=== PATIENT | male | born 1985 | race Caucasian/White ===

== ENCOUNTER 2020-02-20 16:37 | Emergency (ER) | payer SELFPAY ==
[2020-02-20 16:38] VITALS: BP 146/98; PULSE 78; RESP 16; TEMP 37.3; O2SAT 98; BMI 26.5
--- NOTE | 2020-02-20 17:43 | XR_ITS ---
PROCEDURE: XR ELBOW LT MIN 3V CLINICAL INDICATION: PAIN COMPARISON: No exams were available for comparison FINDINGS: No fracture or dislocation. No lytic or blastic change. There is normal mineralization. The joint spaces are well-preserved. No significant degenerative/arthritic changes. No erosive changes evident. Other findings:None. IMPRESSION: No acute findings. Dictated by: Jaiden Jesus MD 02/20/2020 22:21 Electronically signed by Jaiden Jesus MD in [facility] 02/20/2020 22:21
--- NOTE | 2020-02-20 17:43 | XR_ITS ---
PROCEDURE: XR FOREARM LT 2V CLINICAL INDICATION: PAIN COMPARISON: No exams were available for comparison FINDINGS: No fracture or dislocation. No lytic or blastic change. There is normal mineralization. The joint spaces are well-preserved. No significant degenerative/arthritic changes. No erosive changes evident. Other findings:None. IMPRESSION: No acute findings. Dictated by: Jaiden Jesus MD 02/20/2020 22:21 Electronically signed by Jaiden Jesus MD in [facility] 02/20/2020 22:21
--- NOTE | 2020-02-20 18:06 | PC.NURSE ---
per rad staff pt refused his ankle xray, will notify [facility]
--- NOTE | 2020-02-20 18:24 | PC.NURSE ---
pt refusing covid test, will notify [facility]
--- NOTE | 2020-02-20 18:28 | PC.NURSE ---
PT WANTED TO SIGN OUT AMA
--- NOTE | 2020-02-20 18:31 | PC.NURSE ---
INFORMED PT OF POSSIBLE RISKS OF SIGNING OUT AMA INCLUDING POSS OF
[2020-02-20 18:32] VITALS: BP 132/78; PULSE 78; RESP 16; TEMP 36.6; O2SAT 98
== END 2020-02-20 18:40 | disposition home or self-care (01) ==
PROVIDERS: Emergency Provider Family Medicine
DX: S50.12XA Contusion of left forearm, initial encounter (principal); S00.83XA Contusion of other part of head, initial encounter; V89.2XXA Person injured in unspecified motor-vehicle accident, traffic, initial encounter
CPT/HCPCS: 73080; 73090; 99282

== ENCOUNTER 2021-04-24 20:13 | Emergency (ER) | payer OTHER, SELFPAY ==
[2021-04-24 20:12] VITALS: BP 116/72; PULSE 120; RESP 18; TEMP 36.8; O2SAT 99; BMI 26.5
--- NOTE | 2021-04-24 20:38 | [facility]H.EDOD ---
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, PCP (phencyclidine) abuse Ototoxicity Qualifiers: Laterality: bilateral Qualified Code(s): H93.8X3 - Other specified disorders of ear, bilateral Disposition: Home, Self-Care Condition on Discharge: Good Instructions: DI for Drug Overdose in Adults Additional Instructions: see pcp for follow up Referrals: Provider,Referral, [Primary Care Provider] - - Critical Care Critical Care Time: No Attestation: On 04/24/21, the high probability of a clinically significant, sudden or life threatening deterioration of the following system(s) required my full and direct attention, intervention and personal management. The time I documented below is in addition to time spent performing reported procedures but includes the following listed in this critical care notation. Medical Decision Making - Medical Records Medical records reviewed: Yes: I reviewed the patient's medical records. - Ruben Inquiry Pt receiving controlled substance: No Vital Signs: 04/24/21 20:12 Temperature 98.3 F Temperature Source Oral Pulse Rate [Right] 120 H Respiratory Rate 18 Blood Pressure [Right Arm] 116/72 Blood Pressure Mean [Right Arm] 86 Blood Pressure Source [Right Arm] Automatic Cuff Blood Pressure Position [Right Arm] Sitting 02 Sat by Pulse Oximetry 99 Oxygen Delivery Method Room Air - Lab Data Lab results reviewed: Yes: I reviewed the patient's lab results. Lab Results 04/24/21 20:15: WBC 15.8 H, RBC 4.54 L, Hgb 13.9 L, Hct 44.3, MCV 97.5 H, MCH 30.7, MCHC 31.5 L, RDW 14.7, Plt Count 314, MPV 8.9, Neut % (Auto) 88.6 H, Lymph % (Auto) 5.8 L, [place] % (Auto) 4.9, Eos % (Auto) 0.3, Baso % (Auto) 0.5, Neut # (Auto) 14.0 H, Lymph # (Auto) 0.9, [place] # (Auto) 0.8, Eos # (Auto) 0.0, Baso # (Auto) 0.1 04/24/21 20:15: C-Reactive Protein 17.4 H, Salicylates < 1.0 L, Acetaminophen < 10 L 04/24/21 20:15: Urine Color Yellow, Urine Appearance Clear, Urine pH 5.5, Ur Specific [place] >= 1.030, Urine Protein 1+, Urine Glucose (UA) Negative, Urine Ketones Negative, Urine Blood Negative, Urine Nitrate Negative, Urine Bilirubin Negative, Urine Urobilinogen 0.2, Ur Leukocyte Esterase Negative, Urine RBC None, Urine WBC 5-10, Ur Squamous Epith Cells Occasional, Urine Bacteria None, Urine Yeast 1+, Urine Sperm 1+ 04/24/21 20:15: Urine Opiates Screen Negative, Urine Methadone Screen Negative, Ur Barbituates Screen Negative, Ur Phencyclidine Scrn Positive H, Ur Amphetamines Screen Negative, U Benzodiazepines Scrn Negative, Urine Cocaine Screen Negative, U Marijuana (THC) Screen Negative 04/24/21 20:15: Plasma/Serum Alcohol < 10 04/24/21 20:15: ESR 17 H 04/24/21 20:15: Sodium 143, Potassium 4.5, Chloride 103, Carbon Dioxide 25, Anion Gap 19.5 H, BUN 11, Creatinine 1.30 H, Estimated Creat Clear 93, Estimated GFR 62, Est GFR ( Amer) 76, Glucose 108 H, Calcium 8.6, Total Bilirubin 0.4, AST 134 H, ALT 73, Alkaline Phosphatase 115, Total Protein 7.9, Albumin 4.6, Globulin 3.3 H, Albumin/Globulin Ratio 1.4, Procalcitonin 0.965 Result diagrams: 04/24/21 20:15 04/24/21 20:15 Orders (Tests/Meds): ED MEDICATIONS Generic Name Dose Route Start Last Admin Trade Name Freq PRN Reason Stop Dose Admin Sodium Chloride 1,000 mls @ 999 mls/hr 04/24/21 20:45 04/24/21 20:37 Sod Chlor 0.9% 1000ml Bag IV 04/24/21 21:45 999 mls/hr .[id number] KRISTI Administration ORDERS Category Date Time Status CBC [Complete Blood Count Auto Diff] Stat Lab 04/24/21 20:15 Results EKG Request [ECG Request by /[facility]] Stat Y 04/24/21 20:46 Ordered - Radiology Data #1 Image(s): Chest Image Reviewed: Yes I have reviewed radiologist's interpretation Preliminary Findings: Normal/NAD - ECG Data Tracing #1 Arrhythmias present: sinus tach Ischemic changes: non-specific ST-T wave changes Medical Decision Narrative: stable exam and labs will ask pt to see pcp for follow up and hopef
[2021-04-24 20:44] LABS: Microscopic, Urine URINE MICROSCOPIC (MICROSCOPIC)
--- NOTE | 2021-04-24 20:45 | XR_ITS ---
PROCEDURE INFORMATION: Exam: XR Chest Exam date and time: 04/24/2021 8:45 PM Age: 36 years old Clinical indication: Other: Overdose; Additional info: Od TECHNIQUE: Imaging protocol: XR of the chest. Views: 1 view. COMPARISON: No relevant prior studies available. FINDINGS: Limited inspiration and under penetration of the chest. Lungs: There are atelectatic changes identified within the perihilar regions. No evidence of alveolar consolidation. There is no evidence of pulmonary vascular congestion. Pleural spaces: Unremarkable. No pleural effusion. No pneumothorax. Heart/Mediastinum: Unremarkable. No cardiomegaly. Bones/joints: Unremarkable. IMPRESSION: Limited inspiration and under penetration of the chest. There are bilateral perihilar atelectatic changes. No evidence of consolidation or congestive failure.
[2021-04-24 20:53] LABS: Appearance,Urine CLEAR (Clear); Bilirubin,Urine Negative (Negative); Blood, Urine Negative (Negative); Color,Urine YELLOW (Yellow); Glucose,Urine (UA) Negative (Negative); Ketones,Urine Negative (Negative); Leukocyte Esterase,Urine Negative (Negative); Nitrate,Urine Negative (Negative); PH,Urine 5.5 (5.0-8.5); Protein,Urine 1+ (Negative); Specific Gravity, Urine >= 1.030 (1.005-1.030); Urobilinogen,Urine 0.2 EU/dl (0.2)
[2021-04-24 20:55] LABS: Alanine Aminotransferase 73 U/L (12-78); Albumin Level 4.6 g/dl (3.5-5.0); Albumin/Globulin Ratio 1.4 (1.1-1.8); Alkaline Phosphatase 115 U/L (38-126); Anion Gap 19.5 mEq/L (5-15); Aspartate Amino Transferase 134 U/L (17-59); Bilirubin,Total 0.4 mg/dl (0.2-1.3); Blood Urea Nitrogen 11 mg/dl (9-20); Calcium 8.6 mg/dl (8.4-10.2); Carbon Dioxide 25 mmol/L (22.0-30.0); Chloride 103 mmol/L (98-107); Creatinine Clearance Estimated 93 mL/min (50-200); Estimated Glomerular Filt Rate 62 ml/min (>60); GFR (African American) 76 ML/MIN (>60); Globulin 3.3 g/dL (1.3-3.2); Glucose 108 mg/dl (74-100); Potassium 4.5 mmoL/L (3.5-5.1); Sodium 143 mmol/L (136-145); Total Protein,Serum 7.9 g/dl (6.3-8.2)
--- NOTE | 2021-04-24 20:55 | ECG_ITS ---
APPROVED REPORT Exam: Resting ECG HR:105 bpm ECG Measurements Heart Rate 105 AXES [place] 142 P QRSd 96 QRS -18 QT 342 T 44 QTc 452 Conclusion Sinus tachycardia Otherwise normal ECG Electronically signed by : Migue Cheng MD 04/25/2021 17:28:08
[2021-04-24 20:58] LABS: Acetaminophen < 10 ug/ml (10-30); Ethyl Alcohol < 10 mg/dl (0-10); Salicylate < 1.0 mg/dL (2.0-20.0)
[2021-04-24 21:00] LABS: C-Reactive Protein 17.4 mg/L (0-4)
[2021-04-24 21:04] LABS: Amphetamine/Metha Screen,Urine Negative ng/ml (<1000); Benzodiazepines Screen,Urine Negative ng/ml (<200)
[2021-04-24 21:05] LABS: Barbiturates Screen,Urine Negative ng/ml (<200)
[2021-04-24 21:06] LABS: Cannabinoid Screen,Urine Negative ng/ml (<50)
[2021-04-24 21:07] LABS: Cocaine Screen,Urine Negative ng/ml (<300); Methadone Screen,Urine Negative ng/ml (<300)
[2021-04-24 21:08] LABS: Opiate Screen,Urine Negative ng/ml (<300); Phencyclidine Screen,Urine Positive ng/ml (<25)
[2021-04-24 21:10] LABS: Erythrocyte Sedimentation Rate 17 mm/hr (0-15)
[2021-04-24 21:13] LABS: Procalcitonin 0.965 ng/mL (0.0-2.0); Squamous Epithelial Cell,Urine Occasional #/hpf (0-5)
[2021-04-24 21:14] LABS: Sperm,Urine 1+ /lpf; Yeast,Urine 1+ /lpf
[2021-04-24 21:25] LABS: Basophils # 0.1 K/mm3 (0-0.2); Basophils % 0.5 % (0.1-2.0); Eosinophils % 0.3 % (0.1-12.0); Hematocrit 44.3 % (42.0-52.0); Hemoglobin 13.9 g/dL (14.1-18.0); Lymphocytes # 0.9 K/mm3 (0.7-4.5); Lymphocytes % 5.8 % (10-50); Mean Corpuscular HGB Conc 31.5 g/dL (31.8-35.4); Mean Corpuscular Hemoglobin 30.7 pg (27.0-31.2); Mean Corpuscular Volume 97.5 fl (80-94); Mean Platelet Volume 8.9 fl (7.4-10.4); Monocytes # 0.8 K/mm3 (0.1-1.0); Monocytes % 4.9 % (1.7-9.3); Neutrophils % 88.6 % (37.0-80.0); Platelet Count 314 K/mm3 (142-424); Red Blood Count 4.54 M/mm3 (4.60-6.20); Red Cell Distribution Width 14.7 % (11.5-17.5); White Blood Count 15.8 K/mm3 (4.8-10.8)
[2021-04-24 21:27] LABS: MANUAL DIFFERENTIAL MANUAL DIFFERENTIAL (MANUAL DIFF)
[2021-04-24 21:38] VITALS: BP 90/66; PULSE 108; RESP 16; TEMP 36.7; O2SAT 99
[2021-04-24 21:38] LABS: Lymphocytes % 9 % (10-50); Monocytes % 3 % (2-9); Neutrophils % 88 % (42-76); Platelet Estimate Normal; RBC Morphology Normal; Total Cells Counted 100
== END 2021-04-24 21:47 | disposition home or self-care (01) ==
PROVIDERS: Emergency Provider Emergency Medicine
DX: T40.601A Poisoning by unspecified narcotics, accidental (unintentional), initial encounter (principal); H91.93 Unspecified hearing loss, bilateral; F17.210 Nicotine dependence, cigarettes, uncomplicated; Z88.0 Allergy status to penicillin
CPT/HCPCS: 71045; 80053; 80305; 80329; 81001; 84145; 85007; 85025; 85651; 86140; 93005; 96365; 99282

== ENCOUNTER 2025-05-28 18:58 | Emergency (ER) | payer SELFPAY ==
[2025-05-28 19:48] VITALS: BP 153/87; PULSE 80; RESP 18; TEMP 36.8; O2SAT 99; BMI 26.5
--- NOTE | 2025-05-28 21:04 | [facility].EDGENADL ---
Discharge Plan Disposition Patient Disposition: Home, Self-Care Condition: Good Prescriptions Prescriptions: No Action ibuprofen 800 MG tablet 800 mg PO TIDP PRN (Reason: Moderate Pain) Qty: 20 0RF Referrals Follow up/Referrals: Provider,Referral, MD [Primary Care Provider, Medical] - See instructions Activity Restrictions/Add. Instructions Additional Instructions/Restrictions: You will need to follow-up in 6 months for repeat imaging of the groin. If the lymph node actuely gets biggger or if you have any other concerns return to the ER. We will call you if your urine comes back and needs treatment. Clinical Impressions Clinical Impression: Lymphadenopathy Instructions Patient Instructions: DI for Skin Abscess Print Language Print Language: Macedonian Discharge ED Provider: Katalina Lau Adult HPI General Chief complaint: Skin/Abscess/Foreign Body Stated complaint: right spot on inner side of leg Time Seen by Provider: 05/28/25 21:04 Mode of Arrival: Ambulatory Source of Information: Patient Description of Symptoms (Recalled from ER Triage Doc. by RN): Pt presents for evaluation of a knot to his right groin. Pt states it has increased in size, and is painful. Rates pain as a 9/10. History of Present Illness HPI narrative: Patient is a 40-year-old male who presents to the emergency department with a mass in his right groin. Patient states that he noticed it at work today. Patient states that is not tender in nature. Has not grown significantly. Patient denies any urinary symptoms. Patient denies any recent concern for sexually transmitted infections. Patient states that it does not increase in size with coughing or movements. Patient denies any history of hernia. Patient denies any abdominal surgeries. Does not take any daily medications. Patient denies any recent infectious symptoms. Related Data Previous Rx's ?Medication ?Instructions ?Recorded ibuprofen 800 mg tablet 800 mg PO TIDP PRN Moderate Pain 04/07/18 #20 tabs Allergies Allergy/AdvReac Type Severity Reaction Status Date / Time Penicillins Allergy Verified 04/07/18 19:26 [facility] Disclaimer: The information contained in this section may have been updated after the patient was seen, as this information can be updated by other users. Social History Smoking Status: Current every day smoker tobacco type: cigarettes packs per day: 1 alcohol intake: never current occupational status: other Travel in the last 8 weeks?: None household members: other housing: other Have you lived/traveled outside [place] in past 30 days?: No Contact w/someone who lives/traveled outside US past 30 days?: No Exposure to someone with infectious disease in past 14 days?: No Do you have a fever (greater than 100.4 F or 38 C)?: No Have you tested positive for COVID-19?: No Exposed to someone with COVID-19 in past 14 days?: No Do you have a sore throat?: No Do you have a cough?: No Do you have any weakness?: No Do you have any diarrhea?: No Are you experiencing any unusual bleeding?: No Do you have any muscle aches/pain?: No Do you have any abdominal pain?: No Are you experiencing loss of taste or smell?: No Other Medical History Have you received the Flu Vaccine for this season: No Have you received the Pneumonia Vaccine: No ROS Obtained: Yes All systems reviewed & no additional complaints except as documented and Yes Systems reviewed as appropriate & no additional complaints except as documented Physical Exam General General appearance: alert and in no apparent distress Head Head exam: atraumatic, normocephalic and normal inspection Eye Eye exam: Present normal appearance, PERRL and EOMI; Absent scleral icterus ENT ENT exam: Present normal exam and normal external ear exam Neck Neck exam: Present normal inspection and full ROM Chest Chest inspection: Present normal inspection and symmetric chest wall rise Respiratory Respiratory exam: Present normal lung sounds bilaterally; Absent respiratory distress or wheezes Cardiovascular Cardiovascular exam: Present regular rate, normal rhythm and normal heart sounds Abdominal Exam Abdominal exam: Present soft and distention; Absent tenderness, guarding or rebound Extremities Exam Extremities exam: Present normal inspection and full ROM Back Exam Back exam: Present normal inspection and full ROM Neurological Exam Neurological exam: Present alert and oriented X3 Psychiatric Psychiatric exam: Present normal affect and normal mood Skin Skin exam: Present warm, dry and other (R inguinal crease with enlargement and mass, no fluctuance, no skin changes) Medical Decision Making Medical Records Medical records reviewed: Yes I reviewed the patient's medical records. Screening: Per USPSTF and CDC recommendations, given the prevalence of disease in our region, it is our hospital?s policy to screen for HIV and viral Hepatitis for all patients aged 18 and over and those with ongoing risk factors. Ruben Inquiry Pt receiving controlled substance: No Vital Signs: 05/28/25 19:48 05/29/25 00:14 Temperature 98.2 F 98.2 F Temperature Source Oral Pulse Rate 58 L Pulse Rate [Right] 80 Respiratory Rate 18 16 Blood Pressure 122/79 Blood Pressure [Right Arm] 153/87 H Blood Pressure Mean [Right Arm] 109 Blood Pressure Source Automatic Cuff Blood Pressure Position Sitting 02 Sat by Pulse Oximetry 99 Oxygen Delivery Method Room Air Room Air Lab Data Lab results reviewed: Yes I reviewed the patient's lab results. Lab Results 05/28/25 00:00: Urine Color Yellow, Urine Appearance Cloudy, Urine pH 7.5, Ur Specific [place] 1.020, Urine Protein Negative, Urine Glucose (UA) Negative, Urine Ketones Trace, Urine Blood Negative, Urine Nitrate Negative, Urine Bilirubin Negative, Urine Urobilinogen 0.2, Ur Leukocyte Esterase Negative, Amorphous Sediment 4+, Ur C. trach DNA (PCR) Negative, U N.gonorrhoeae DNA PCR Negative, T. vaginalis (PCR) Negative 05/28/25 22:30: WBC 4.7 L, RBC 4.32 L, Hgb 13.0 L, Hct 38.8 L, MCV 89.8, MCH 30.1, MCHC 33.5, RDW 12.7, Plt Count 143, MPV 9.6, Neut % (Auto) 52.4, Lymph % (Auto) 29.9, [place] % (Auto) 12.8 H, Eos % (Auto) 4.1, Baso % (Auto) 0.6, Neut # (Auto) 2.5, Lymph # (Auto) 1.4, [place] # (Auto) 0.6, Eos # (Auto) 0.2, Baso # (Auto) 0.0, Sodium 135 L, Potassium 4.1, Chloride 104, Carbon Dioxide 30, Anion Gap 5.1, BUN 12, Creatinine 0.90, Estimated Creat Clear 129, Estimated GFR 93, Est GFR ( Amer) 113, Glucose 97, Calcium 8.9, Total Bilirubin 0.7, AST 42, ALT 58, Alkaline Phosphatase 89, Total Protein 6.5, Albumin 3.2 L, Globulin 3.3 H, Albumin/Globulin Ratio 1.0 L 05/28/25 22:30 05/28/25 22:30 Orders (Tests/Meds): ED MEDICATIONS Discontinued Medications Generic Name Dose Route Start Last Admin Trade Name Freq PRN Reason Stop Dose Admin Iopamidol 75 ml 05/28/25 23:14 05/28/25 23:15 Iopamidol-370 (76%);100ml Bottle IV 05/28/25 23:15 75 ml ONCE ONE Administration Sodium Chloride 10 ml 05/28/25 23:14 05/28/25 23:15 Sodium Chloride 0.9% 10ml Syr (Rad Only) IV 06/27/25 23:13 10 ml NEEDED PRN Administration Maintain IV Site ORDERS Category Date Time Status CT abdomen pelvis w con Stat Cat Scan 05/28/25 22:00 Completed CBC w/Auto Diff [Complete Blood Count Auto Diff] Stat Lab 05/28/25 22:30 Completed CMP [Comprehensive Metabolic Panel] Stat Lab 05/28/25 22:30 Completed UA [Urinalysis and Microscopic] Stat Lab 05/28/25 22:00 Completed Urine Chlam/Gono/Trich ([facility]) Stat Lab 05/28/25 22:00 Completed Urine Culture Stat Micro 05/28/25 22:00 Completed Medical Decision Narrative: Patient is a 40-year-old male with no significant past medical history who presents to the emergency department with a mass in the right groin. On arrival, patient was hemodynamically stable with unremarkable vital signs. Differential includes but not limited to: Lymphadenopathy, hernia, mass, anatomical anomaly, amongst others. Labs reviewed and interpreted by myself: CBC showed no leukocytosis, hemoglobin was stable. CMP was unremarkable. UA showed no evidence of infection. CT scan was reviewed and interpreted by myself: There was right inguinal lymphadenopathy but no evidence of hernia or other acute pathology. Patient was recommended follow-up with a primary care provider to get this further evaluated for resolution. Patient was otherwise discharged home in stable condition return precautions were discussed. Critical Care Critical Care Time Critical Care Time: No
--- NOTE | 2025-05-28 22:00 | CT_ITS ---
PROCEDURE INFORMATION: Exam: CT Abdomen And Pelvis With Contrast Exam date and time: 05/28/2025 11:10 PM Age: 40 years old Clinical indication: Mass, lump, or swelling; Other: Right groin mass TECHNIQUE: Imaging protocol: Computed tomography of the abdomen and pelvis with contrast. Radiation optimization: All CT scans at this facility use at least one of these dose optimization techniques: automated exposure control; mA and/or kV adjustment per patient size (includes targeted exams where dose is matched to clinical indication); or iterative reconstruction. Contrast material: ISOVUE; Contrast volume: 75 ml; Contrast route: IV; COMPARISON: CR XR CHEST PORTABLE 04/24/2021 8:51 PM FINDINGS: Liver: Normal. No mass. Gallbladder and biliary ducts: Normal. No calcified stones. No ductal dilation. Pancreas: Normal. No ductal dilation. Spleen: Normal. No splenomegaly. Adrenal glands: Normal. No mass. Kidneys and ureters: Normal. No hydronephrosis. Stomach and bowel: Unremarkable. No obstruction. No mucosal thickening. Appendix: No evidence of appendicitis. Intraperitoneal space: Unremarkable. No free air. No significant fluid collection. Vasculature: Unremarkable. No abdominal aortic aneurysm. Lymph nodes: Enlarged right inguinal lymph node measuring 1.8 cm in short axis. Urinary bladder: Unremarkable as visualized. Reproductive: Unremarkable as visualized. Bones/joints: Unremarkable. No acute fracture. Soft tissues: Unremarkable. IMPRESSION: 1. No acute intra-abdominal findings. 2. Enlarged right inguinal lymph node measuring 1.8 cm in short axis. Three-month imaging follow-up to confirm resolution recommended.
[2025-05-28 22:46] LABS: Hematocrit 38.8 % (42.0-52.0); Hemoglobin 13.0 g/dL (14.1-18.0); Immature Granulocytes % 0.2 %; Mean Corpuscular HGB Conc 33.5 g/dL (31.8-35.4); Mean Corpuscular Hemoglobin 30.1 pg (27.0-31.2); Mean Corpuscular Volume 89.8 fl (80-94); Nucleated Red Blood Cells % 0 %; Platelet Count 143 K/mm3 (142-424); Red Blood Count 4.32 M/mm3 (4.60-6.20); Red Cell Distribution Width-SD 41.7 fL; White Blood Count 4.7 K/mm3 (4.8-10.8)
[2025-05-28 22:47] LABS: Alanine Aminotransferase 58 U/L (12-78); Albumin Level 3.2 g/dl (3.5-5.0); Albumin/Globulin Ratio 1.0 (1.1-1.8); Alkaline Phosphatase 89 U/L (38-126); Anion Gap 5.1 mEq/L (5-15); Aspartate Amino Transferase 42 U/L (17-59); Bilirubin,Total 0.7 mg/dl (0.2-1.3); Blood Urea Nitrogen 12 mg/dl (9-20); Calcium 8.9 mg/dl (8.4-10.2); Carbon Dioxide 30 mmol/L (22.0-30.0); Chloride 104 mmol/L (98-107); Creatinine Clearance Estimated 129 mL/min (50-200); Creatinine,Serum 0.90 mg/dl (0.66-1.25); Estimated Glomerular Filt Rate 93 ml/min (>60); GFR (African American) 113 ML/MIN (>60); Globulin 3.3 g/dL (1.3-3.2); Glucose 97 mg/dl (74-100); Potassium 4.1 mmoL/L (3.5-5.1); Sodium 135 mmol/L (136-145); Total Protein,Serum 6.5 g/dl (6.3-8.2)
[2025-05-28] MEDS: IOPAMIDOL-370 (76%);100ML BOTTLE 75 ML IV (23:15)
[2025-05-28] MEDS: SODIUM CHLORIDE 0.9% 10ML SYR (RAD ONLY) 10 ML IV (23:15)
[2025-05-29 00:07] LABS: Microscopic, Urine URINE MICROSCOPIC (MICROSCOPIC)
[2025-05-29 00:12] LABS: Bilirubin,Urine Negative (Negative); Color,Urine YELLOW (Yellow); Glucose,Urine (UA) Negative (Negative); Ketones,Urine TRACE (Negative); Leukocyte Esterase,Urine Negative (Negative); PH,Urine 7.5 (5.0-8.5); Protein,Urine Negative (Negative); Specific Gravity, Urine 1.020 (1.005-1.030); Urobilinogen,Urine 0.2 EU/dl (0.2)
[2025-05-29 00:14] VITALS: BP 122/79; PULSE 58; RESP 16; TEMP 36.8; O2SAT 100
[2025-05-29 00:21] LABS: Amorphous Sediment,Urine 4+ /lpf
== END 2025-05-29 00:14 | disposition home or self-care (01) ==
PROVIDERS: Emergency Provider Student in an Organized Health Care Education/Training Program
DX: R59.0 Localized enlarged lymph nodes (principal); R19.09 Other intra-abdominal and pelvic swelling, mass and lump
CPT/HCPCS: 74177; 80053; 81001; 85025; 87086; 87491; 87591; 87661; 99284; Q9967